=== PATIENT | female | born 1950 | race Caucasian/White ===

== ENCOUNTER → 2016-03-21 | Outpatient (CLI) | payer OTHER | LOC: ULTRA 02:35 | DX: R92.2 Inconclusive mammogram (principal) ==

== ENCOUNTER → 2017-04-09 | Outpatient (CLI) | payer OTHER | LOC: RAD 01:57 | DX: C50.911 Malignant neoplasm of unspecified site of right female breast (principal); Z17.0 Estrogen receptor positive status [ER+] ==

== ENCOUNTER → 2018-04-23 | Outpatient (CLI) | payer OTHER | LOC: RAD 04-16 13:20 | DX: N63.21 Unspecified lump in the left breast, upper outer quadrant (principal); C50.911 Malignant neoplasm of unspecified site of right female breast; Z17.0 Estrogen receptor positive status [ER+]; Z88.1 Allergy status to other antibiotic agents ==

== ENCOUNTER → 2018-04-27 | Outpatient (CLI) | payer OTHER ==
--- NOTE | 2018-05-08 16:23 | PATH ---
[facility] [address] [place] [address] PATHOLOGY RPT PROCEDURE Name: CONCEPCION SANDERSON Room #: REG ANGELA Alexis#: [id number] ������������������ Admission: 04/27/18 ������������������ Date of : 54 Discharge: Report #: [id number] Path Case #: [id number] [facility] Accession Number: [id number] . 01 Material submitted: . LT BREAST 3:00, 3CM FN . 01 Clinical history: . Left breast nodule . 02 Diagnosis: Breast, left breast nodule 3:00 3 cm from nipple, needle core biopsy: - INVASIVE MODERATELY DIFFERENTIATED DUCTAL ADENOCARCINOMA, RACHEL GRADE 2, MEASURING 3 MM IN GREATEST DIMENSION IN A SINGLE CORE IN CONTIGUOUS LENGTH. [facility]/04/28/2018 . 02 Comment: Specimen type: Needle core biopsy Tumor site: 3:00, 3 cm from nipple Tumor quantitation: 3 mm Histologic type: Invasive ductal carcinoma Histologic grade: Thompson grade 2 (of 3) Tubules, nuclei and mitoses: 3, 2 and 1, respectively LVSI: Not identified Microcalcifications: Not identified Markers: ER, HI, HER-2/darlene and Ki-67 Block: A2 . Co-Review: Dr. Lorraine Block . Findings are telephoned to Ms. Liz Solis in our [facility] at 12:00 p.m. on 04/28/18. (IUV/db; 04/28/2018) . 02 Addendum: . Special studies report received from [facility], [address] [place] [address], [address], [place], [address], on case [id number], labeled with their number [id number], dated 05/02/2018. . Breast/Prognostic Marker Analysis . Specimen Site: Left Breast, 3:00 (Biopsy), Invasive Moderately-Differentiated Ductal Adenocarcinoma Specimen ID #: [id number] . ER (Estrogen Receptor) [place] [address] PATHOLOGY RPT PROCEDURE Name: KINCONCEPCION CHARLES Room #: REG Benjie Alexis#: [id number] ������������������ Admission: 04/27/18 ������������������ Date of : 54 Discharge: Report #: [id number] Path Case #: [id number] Present/Positive Percent: 95.00% Analysis: Manual Comments: Staining Intensity: Strong. . HI (Progesterone Receptor) Present/Positive Percent: 5.00% Analysis: Manual Comments: Staining Intensity: Weak-moderate. . HER2 Not Over-Expressed Score: 1+ Analysis: Manual . Ki-67 Low Proliferation Percent: 10.00% Analysis: Manual . Time to Fixation (Cold Ischemic Time): 1 minute Duration of Fixation: Not Provided Type of Fixative: 10% Neutral Buffered Formalin . . at [facility]. Marcin Cortes M.D. Pathologist . . Methodology The HER2 Receptor protein expression is analyzed using the [place] HER2 rabbit monoclonal antibody (clone [id number]). This assay is used for diagnostic determination of the HER2 protein over-expression in paraffin embedded, formalin fixed breast cancer tissue on the [place] Benchmark. The specimen is processed using a polymer detection system. The membrane staining of the tumor is determined either by manual score or image analysis. This antibody is intended for in vitro diagnostic use. The score is reported as per package insert; 0, 1+, 2+, and 3+. This test is used for clinical purposes. . A rabbit monoclonal antibody (clone SP1) that recognized the Estrogen Receptor is used to perform immunohistochemistry on routinely fixed (formalin) paraffin embedded tissue on the [place] Benchmark. The specimen is processed using a polymer detection system. The percentage of stained tumor nuclei is determined either manually or by image analysis. This test [address] [address] PATHOLOGY RPT PROCEDURE Name: KINCONCEPCION ANNE Room #: REG ANGELA Alexis#: [id number] ������������������ Admission: 04/27/18 ������������������ Date of : 54 Discharge: Report #: [id number] Path Case #: [id number] is intended for in vitro diagnostic use. This test is used for clinical purposes. . A rabbit monoclonal antibody (clone 1E2) that recognized the Progesterone Receptor is used to perform immunohistochemistry on routinely fixed (formalin) paraffin embedded tissue on the [place] Benchmark. The specimen is processed using a polymer detection system. The percentage of stained tumor nuclei is determined either manually or by image analysis. This test is intended for in vitro diagnostic use. This test is used for clinical purposes. . A rabbit monoclonal antibody (clone 30-9) that recognized Ki67 is used to perform immunohistochemistry on routinely fixed (formalin) paraffin embedded tissue on the [place] Benchmark. The specimen is processed using a polymer detection system. The percentage of stained tumor nuclei is determined either manually or by image analysis. This test is intended for in vitro diagnostic use. This test is used for clinical purposes. . Intended Use: This antibody is intended for in vitro diagnostic (IVD) use. HER2 (4B5) is a rabbit monoclonal antibody intended for the semi-quantitative detection of HER2 antigen in sections of formalin-fixed, paraffin embedded normal and neoplastic tissue. . This antibody is intended for in vitro diagnostic (IVD) use. Estrogen Receptor (ER) (SP1) is a rabbit monoclonal antibody (IgG) that is intended for the qualitative detection of estrogen receptor (ER) antigen in sections of formalin-fixed, paraffin-embedded tissue. ER is a rabbit monoclonal antibody that recognizes human estrogen receptor alpha. . This antibody is intended for in vitro diagnostic (IVD) use. Progesterone Receptor (HI) (1E2) is a rabbit monoclonal antibody (IgG) that is intended for the qualitative detection of progesterone receptor (HI) antigen in sections of formalin fixed, paraffin embedded tissue. HI is a rabbit monoclonal antibody that recognizes the A and B forms of the human progesterone receptor. . This antibody is intended for in vitro diagnostic (IVD) use. Ki-67 (30-9) is a rabbit monoclonal antibody (IgG) directed against C-terminal portion of Ki-67 antigen. Staining for Ki-67 can be used to aid in assessing the proliferative activity of normal and neoplastic tissue. Ki-67 is a nuclear protein expressed in proliferating cells. During the cell cycle, the Ki-67 antigen is present in the G1, S, G2 and M phase but is absent in the G0 (quiescent phase). . . Disclaimer: This Test was performed by [facility] [employer] [facility]. at [address] [address] PATHOLOGY RPT PROCEDURE Name: CONCEPCION SANDERSON Room #: REG [facility] M..#: [id number] ������������������ Admission: 04/27/18 ������������������ Date of : 54 Discharge: Report #: [id number] Path Case #: [id number] [address] [place] [address], [address]. . [facility] is a business unit of [facility]. a wholly-owned subsidiary of [employer]. . This assay has not been validated on decalcified tissues. Results should be interpreted with caution if this specimen was decalcified given the likelihood of false negativity on decalcified specimens. . Any image(s) that accompany this report is/are a logistics service representative image(s) only and should not be used to render a diagnosis. . This interpretation is contingent on the specimen and the clinical information received. . For any special tests/stains performed, known positive cells or tissues are tested with each marker and examined to ensure positivity. Positive and negative internal controls, if present, react appropriately. . This analysis is an adjunct to the evaluation of the referring physician and does not represent a final diagnosis. . The immunohistochemistry tests performed at [facility]. were validated on tissue fixed in 10% neutral buffered formalin. The performance characteristics of the tests performed on tissue processed in other fixatives is not known. . HER2 testing at [facility] is performed in compliance with the 2018 updated ASCO/CAP Clinical Practice Guideline Focused Update. If the result is EQUIVOCAL (2+), it must be confirmed by an alternative assay such as FISH or Dual EDDIE. REF: Trena KYLE, JEMIMA Yoder et al: Human Epidermal Growth Factor Receptor 2 Testing in Breast Cancer: ASCO/CAP Clinical Practice Guideline Focused Update. J Clin Oncol 36:8917-5439, 2018. . HER2 and ER/HI ASCO/CAP guidelines require fixation in neutral buffered formalin for a minimum of 6 and a maximum of 72 hours. Fixation times less than 6 hours may not adequately preserve cell proteins. Fixation times longer than 72 hours may cause excess cross-linking of proteins reducing the antigen available for staining. Either scenario can cause reduced staining; hence false negative results are possible and should be considered for these situations if the HER2 IHC score is less than 3+ or ER or HI is negative (no staining or <1% positive). It is recommended that specimens fixed longer than 72 hours with HER2 IHC scores less than 3+ be confirmed by HER2 FISH or Dual EDDIE. The time from biopsy/excision to fixation in formalin (cold ischemic time) must be less than 1 hour. Time to fixation (cold ischemic time) greater than 1 hour should be interpreted [address] [address] PATHOLOGY RPT PROCEDURE Name: KINCONCEPCION CHARLES Room #: REG ANGELA Alexis#: [id number] ������������������ Admission: 04/27/18 ������������������ Date of : 54 Discharge: Report #: [id number] Path Case #: [id number] with caution. HER2 testing, mainly HER2 by FISH, is particularly vulnerable since excessive cold ischemic time results in preferential loss of HER2 probe signals that may lead to false negative results. . SCORE STAINING PATTERN IN TUMOR CELLS INTERPRETATION RESULTS 0 No staining observed or incomplete, faint membrane staining in less than or equal to 10% of tumor cells. Negative 1+ Incomplete, faint membrane staining in greater than 10% of tumor cells. Negative 2+ Incomplete and/or weak/moderate circumferential membrane staining in greater than 10% of the invasive tumor cells or complete, circumferential, intense alternative assay staining in less than or equal to 10% of invasive tumor cells. Equivocal* *Must be confirmed by alternative assay (IHC/FISH/Dual EDDIE) 3+ Intense, complete membrane staining in greater than 10% of tumor cells. Positive . A complete copy of the report is on file. . Professional and Technical services performed by [employer]. at [address] [place] [address], [address] [place] [address]. . (AMJ 05/04/2018) . [place]/05/04/2018 Addendum Electronically Signed by Lisa Vora MD, Pathologist . 02 Electronically signed: . Lisa Vora MD, Pathologist NPI- [id number] . 01 Gross description: . The specimen is received in formalin, labeled "Concepcion Sanderson, Lt breast 3:00 3 cmFN" and consists of multiple needle cores of yellow-orange tissue measuring 3.0 x 1.4 x 0.4 cm in aggregate which are entirely submitted in A1-A3. The specimen was collected at 10:28 AM on 04/27/18 and placed in formalin at 10:21 AM. The cold ischemic time is 1 minute and the total formalin fixation time is greater than 6 hours but less than 72 hours. (SDY; 04/27/2018) SYU/SYU . [address] [address] PATHOLOGY RPT PROCEDURE Name: CONCEPCION SANDERSON Room #: MARCO ANTONIO Alexis#: [id number] ������������������ Admission: 04/27/18 ������������������ Date of : 54 Discharge: Report #: [id number] Path Case #: [id number] Pathologist provided ICD-10: C50.912 . 02 CPT . 300964 Specimen Comment: A courtesy copy of this report has been sent to Specimen Comment: [phone], . Specimen Comment: Report sent to / DR ALAS Specimen Comment: A duplicate report has been generated due to demographic updates. Performed at: [address] [facility] [address], [place], [place] [id number] MD Pranay Harris MD Phone: [phone] Performed at: [address] [facility] [address] [id number] MD Lisa Vora MD Phone: [phone]
== END | disposition home or self-care (01) ==
LOC: ULTRA 09:30
DX: C50.912 Malignant neoplasm of unspecified site of left female breast (principal)